=== PATIENT | female | born 1940 | race Caucasian/White ===

== ENCOUNTER 2016-06-01 20:30 | Emergency (ER) | payer MEDICARE, BC ==
[~2016-06-01] VITALS: Ht 162.6 cm; Wt 86.0 kg
[~2016-06-01 20:30] MED LIST: BACITUD TOP; BACTDS PO; CEPH-443 PO; NEOM1PAC TP
[2016-06-01 20:35] VITALS: Ht 162.6 cm; Wt 86.0 kg
--- NOTE | 2016-06-01 22:24 | ERD ---
ER Documentation Chief Complaint Date/Time DATE: 06/01/16 TIME: 22:20 Chief Complaint left finger laceration, bleeding controlled HPI Patient is a 76-year-old female who presents with laceration to her left middle finger that she sustained today while in the kitchen cutting a cabbage. She said since she has had the change the bandage twice and it would not stop bleeding. She denies being on any blood thinning medication. She states her last tetanus shot was just a few months ago. Denies any numbness or tingling, or loss of range of motion. Pain is mild to moderate pulsating throbbing. ROS All systems reviewed and are negative except as per history of present illness. Medications Home Meds Active Scripts Neomycin Jose/Bacitrac Zn/Poly (Triple Antibiotic Ointment) 1 Each Oint.pack, 1 EACH TP BID for 7 Days Prov:JOE TOPETE PA-C 02/11/16 Bacitracin* (Bacitracin Oint (UD)*) 1 Applic Oint, 1 APPLIC TOP BID for 7 Days, PKT APPLY TO Prov:ANDREA AMBROCIO PA-C 02/09/16 Cephalexin* (Keflex*) 500 Mg Capsule, 500 MG PO QID for 7 Days, CAP Prov:ANDREA AMBROCIO PA-C 02/09/16 Sulfamethoxazole-Trimethoprim* (Bactrim* DS) 800-160 Mg Tab, 1 TAB PO BID for 7 Days, TAB Prov:ANDREA AMBROCIO PA-C 02/09/16 Allergies Allergies: Coded Allergies: No Known Allergy (Unverified , 02/09/16) PMhx/Soc History of Surgery: Yes (hysterectomy, appy) Anesthesia Reaction: No Hx Respiratory Disorders: No Hx Cardiac Disorders: No Hx Psychiatric Problems: No Hx Miscellaneous Medical Probl: Yes (HTN, high cholesterol) Hx Alcohol Use: No Hx Substance Use: No Hx Tobacco Use: No Smoking Status: Never smoker FmHx Family History: No diabetes Physical Exam Vitals Vital Signs Date Time Temp Pulse Resp B/P Pulse Ox O2 Delivery O2 Flow Rate FiO2 06/01/16 20:35 98.1 89 17 168/75 99 Physical Exam General: well developed, well nourished, alert, nontoxic, no distress Head: normocephalic, atraumatic Neck: Supple, nontender, no lymphadenopathy, no midline tenderness Respiratory: Clear to auscaultation bilaterally, speaks in full sentences, no use of accesory muscles or labored breathing, no rales, ronchi, or wheezing Cardiovascular: RRR, No murmurs Extremities: moving all extremities normally, normal gait, no edema Skin: Left middle finger on the pad distal there is a partial skin avulsion that is superficial approximately 1 cm in diameter, mild active bleeding, no bony abnormalities, full range of motion in the finger active passively and against resistance, capillary refill less than 2 seconds, sensation to light touch intact, radial pulse 2+ Procedures/MDM Patient presents with small superficial avulsion of skin on the distal left fingertip. She is neurovascularly intact. She has good range of motion and strength against resistance and given how superficial the wound is I have a very low suspicion for a tendon or bony injury. Her wound was appropriately cleaned dressed and bandaged here in the emergency room. Surgicel was applied to the wound to get it to stop bleeding. Recommended 2 day wound check in 7-10 days for removal of sutures. Recommended this patient follow up with her primary care doctor within 48 hours or return to the emergency room for any worsening of symptoms. However this time I do believe there is suitable for outpatient management. I answered all their questions and they agreed with the plan and were discharged home. Departure Diagnosis: Primary Impression: Skin avulsion Condition: Stable CODY ROY PA-C Jun 01, 2016 22:24
== END 2016-06-01 22:51 | disposition home or self-care (01) ==
LOC: FTE 20:30
DX: S61.313A Laceration without foreign body of left middle finger with damage to nail, initial encounter (principal); I10 Essential (primary) hypertension; W26.0XXA Contact with knife, initial encounter; Y92.000 Kitchen of unspecified non-institutional (private) residence as the place of occurrence of the external cause
CPT/HCPCS: 99282

== ENCOUNTER 2016-09-18 13:34 | Emergency (ER) | payer MEDICARE, BC ==
[~2016-09-18] VITALS: Ht 160 cm; Wt 80.0 kg
[2016-09-18 13:35] VITALS: Ht 160 cm; Wt 80.0 kg
--- NOTE | 2016-09-18 14:19 | ERD ---
ER Documentation Chief Complaint Date/Time DATE: 09/18/16 TIME: 14:19 Chief Complaint LT 2ND FINGER LAC HPI This is a 76-year-old female who presents the emergency department today for a left finger laceration that she sustained last night with a tool that she used to cut including her vegetables. Patient states she thought it was turned off but it was not.. Patient stated that the wound was bleeding a lot last night. States that she had a tetanus shot in January 2016. Denies any fevers or chills. ROS All systems reviewed and are negative except as per history of present illness. Medications Home Meds Active Scripts Acetaminophen* (Tylophen*) 500 Mg Capsule, 1 CAP PO Q6H Y for PAIN AND OR ELEVATED TEMP, #30 CAP Prov:JOE TOPETE PA-C 09/18/16 Neomycin Jose/Bacitrac Zn/Poly (Triple Antibiotic Ointment) 1 Each Oint.pack, 1 EACH TP BID for 7 Days Prov:JOE TOPETE PA-C 02/11/16 Bacitracin* (Bacitracin Oint (UD)*) 1 Applic Oint, 1 APPLIC TOP BID for 7 Days, PKT APPLY TO Prov:ANDREA AMBROCIO PA-C 02/09/16 Cephalexin* (Keflex*) 500 Mg Capsule, 500 MG PO QID for 7 Days, CAP Prov:ANDREA AMBROCIO PA-C 02/09/16 Sulfamethoxazole-Trimethoprim* (Bactrim* DS) 800-160 Mg Tab, 1 TAB PO BID for 7 Days, TAB Prov:ANDREA AMBROCIO PA-C 02/09/16 Allergies Allergies: Coded Allergies: No Known Allergy (Unverified , 09/18/16) PMhx/Soc History of Surgery: Yes (hysterectomy, appy) Anesthesia Reaction: No Hx Respiratory Disorders: No Hx Cardiac Disorders: No Hx Psychiatric Problems: No Hx Miscellaneous Medical Probl: Yes (HTN, high cholesterol) Hx Alcohol Use: No Hx Substance Use: No Hx Tobacco Use: No Smoking Status: Never smoker Physical Exam Vitals Vital Signs Date Time Temp Pulse Resp B/P Pulse Ox O2 Delivery O2 Flow Rate FiO2 09/18/16 13:35 97.8 69 16 200/90 99 Physical Exam Const: NAD Head: Atraumatic Eyes: Normal Conjunctiva ENT: Normal External Ears, Nose and Mouth. Neck: Full range of motion..~ No meningismus. Resp: Clear to auscultation bilaterally Cardio: Regular rate and rhythm, no murmurs Abd: Soft, non tender, non distended. Normal bowel sounds Skin: Left hand index finger with 3 small superficial lacerations around DIP. Bleeding well controlled Back: No midline or flank tenderness Ext: Left hand index finger with 3 small superficial lacerations around DIP. Bleeding well controlled. Full active range of motion of finger. Nontender DIP. Pulses 2+. Distal neurovascularly intact. Good cap refill. Neur: Awake and alert Psych: Normal Mood and Affect Results 24 hrs Current Medications Medications (Trade) Dose Ordered Sig/Angie Route PRN Reason Start Time Stop Time Status Last Admin Dose Admin Nicardipine HCl (Cardene) 30 mg ONCE ONCE PO 09/18/16 15:00 09/18/16 15:01 DC 09/18/16 14:44 Procedures/MDM This is a 76-year-old female who presents emergency department today for a laceration that she sustained last night while using a tool to cut and clean her vegetables. On physical exam patient has 3 small superficial lacerations around her DIP and fingernail. Patient sustained this trauma last night and I do not feel the patient requires sutures at this time as the wounds are superficial. Patient has full active range of motion of her finger. She is nontender on her bone. I have low suspicion for fracture or crush injury or tuft injury. I do not feel that she requires imaging at this time. Patient is up-to-date on her tetanus and upon review of patient's medical record she did have a tetanus vaccine here in this emergency department in January 2016. Patient's wounds were dressed here in the emergency department. I did close the wound with Steri-Strips. It was noted that patient had an elevated blood pressure of 200/90. I did recheck patient's blood pressure and it continued to be elevated at 213/99. Patient indicated she takes Diovan and metoprolol and simvastatin at home. Patient was given p.o. Cardene here in the emergency department and blood pressure was down trending and was 196/81 Patient denies any headache, dizziness, blurred vision currently and I do not feel the patient requires workup or imaging at this time. She is instructed to take her usual blood pressure medications at home as prescribed Patient symptoms at this time is consistent with laceration and elevated blood pressure At this time the patient is stable for discharge and outpatient management. Patient should follow up with their PCP in the next 1-2 days. They may return to the emergency department sooner for any persistent or worsening of symptoms. Patient understood and agreed with the plan. Discussed the patient with Dr. Hussein and he is in agreement with the plan. Departure Diagnosis: Primary Impression: Laceration Additional Impression: High blood pressure Hypertension type: essential hypertension Qualified Code: I10 - Essential hypertension Condition: Fair JOE TOPETE PA-C Sep 18, 2016 14:19
[2016-09-18] MEDS ORDERED: NICARDipine HCL 30 MG CAPSULE PO ONE (15:00)
[2016-09-18] MEDS ORDERED: ACET500C5 PO (15:25)
[2016-09-18 15:40] VITALS: BP 134/64; PULSE 70; RESP 16; TEMP 98.3
== END 2016-09-18 15:41 | disposition home or self-care (01) ==
LOC: FTE 13:34
DX: S61.211A Laceration without foreign body of left index finger without damage to nail, initial encounter (principal); I10 Essential (primary) hypertension; W26.8XXA Contact with other sharp object(s), not elsewhere classified, initial encounter; Y92.9 Unspecified place or not applicable
CPT/HCPCS: 99283

== ENCOUNTER 2016-11-20 12:36 | Inpatient (IN) | payer MEDICARE, BC ==
[~2016-11-20] VITALS: Ht 134.6 cm; Wt 80.9 kg
[~2016-11-20 12:36] MED LIST changes: +ACET500C5 PO
[2016-11-20 16:24] LABS: BASOPHIL # 0.1 10^3/ul (0.0-0.1); BASOPHILS % 1.3 % (0.0-2.0); EOSINOPHILS # 0.3 10^3/ul (0.0-0.5); EOSINOPHILS % 4.2 % (0.0-7.0); HEMATOCRIT 40.7 % (37.0-47.0); HEMOGLOBIN 14.1 g/dl (12.0-16.0); LYMPHOCYTES # 2.5 10^3/ul (0.8-2.9); LYMPHOCYTES % 33.2 % (15.0-51.0); MEAN CORPUSCULAR HEMOGLOBIN 30.8 pg (29.0-33.0); MEAN CORPUSCULAR HGB CONC 34.6 g/dl (32.0-37.0); MEAN CORPUSCULAR VOLUME 88.9 fl (82.0-101.0); MEAN PLATELET VOLUME 10.4 fl (7.4-10.4); MONOCYTE # 0.7 10^3/ul (0.3-0.9); MONOCYTES % 8.6 % (0.0-11.0); NEUTROPHILS % 52.3 % (39.0-77.0); PLATELET COUNT 174 10^3/UL (140-415); RED BLOOD COUNT 4.58 10^6/ul (4.20-5.40); RED CELL DISTRIBUTION WIDTH 12.3 % (11.5-14.5); WHITE BLOOD COUNT 7.6 10^3/ul (4.8-10.8)
[2016-11-20 16:45] LABS: INR 1.01; PROTIME 13.3 Sec (12.2-14.2)
[2016-11-20 16:46] LABS: PARTIAL THROMBOPLASTIN TIME 26.2 Sec (25.0-35.0)
[2016-11-20 16:49] LABS: ANION GAP 10 (8-16); BLOOD UREA NITROGEN 18 mg/dl (7-20); CARBON DIOXIDE 32 mmol/L (21-31); CHLORIDE 101 mmol/L (97-110); CREATININE 0.76 mg/dl (0.44-1.00); GLUCOSE 87 mg/dl (70-220); POTASSIUM 3.9 mmol/L (3.5-5.1); SODIUM 139 mmol/L (135-144)
--- NOTE | 2016-11-20 16:51 | RADRPT ---
PROCEDURE: XR Chest. CLINICAL INDICATION: Cerebrovascular accident. TECHNIQUE: Single frontal view. COMPARISON: None. FINDINGS: The lungs are clear. The heart is mildly enlarged. There is calcification in the aorta consistent with atherosclerosis. There is no pleural effusion. There is no pneumothorax. IMPRESSION: 1. Cardiomegaly and atherosclerosis. 2. Otherwise normal chest x-ray. RPTAT: QQ .Zacarias Clintno MD, MD Date Time Electronically viewed and signed by .Zacarias Clinton MD, MD on 11/20/2016 16:51 .R/
[2016-11-20 17:02] LABS: TROPONIN-I < 0.012 ng/ml (0.00-0.12)
--- NOTE | 2016-11-20 18:00 | RADRPT ---
PROCEDURE: CT Brain without contrast. CLINICAL INDICATION: Nodular deficit, possible stroke. TECHNIQUE: A CT of the brain was performed on multidetector high-resolution CT scanner utilizing a xial sections from the skull base through the vertex without contrast. The scan was reviewed in sof t tissue brain and high frequency resolution bone algorithm windows. Images were reviewed on a high -resolution PACS workstation. One or more the following does reduction techniques were utilized: Aut omated exposure control, adjustment of the mA/ or kV according to patient's size, or use of iterativ e reconstruction technique. The exam CTDI = 43.12 mGy and the DLP = 823.86 mGy-cm. COMPARISON: None available. FINDINGS: The ventricles and sulci are mildly to moderately prominent indicative of volume loss. There is no intracranial hemorrhage, mass effect or midline shift. No abnormal intra-axial or extra-axial fluid collections are seen. The mckee/white matter differentiation is preserved. There are mild scattered foci of hypoattenuation in the white matter, which are nonspecific in etiol ogy but likely reflect chronic small vessel ischemic changes. Small lacunar infarcts are noted in t he left rivera radiata and lentiform nucleus, likely chronic. There are mild intracranial vascular calcifications consistent with atherosclerosis. The visualized paranasal sinuses are essentially sunita ar. IMPRESSION: 1. No acute intracranial hemorrhage, transcortical infarction or mass effect. 2. Mild intracranial atherosclerosis and chronic small vessel ischemic changes. 3. Small lacunar infarcts are noted in the left rivera radiata and lentiform nucleus, likely chroni c. Please note MRI is more sensitive for detection of acute ischemia and can be obtained as clinical ly warranted. 4. Mild to moderate generalized cerebral volume loss. RPTAT: HH .Kesha Bhatt MD, MD Date Time Electronically viewed and signed by .Kesha Bhatt MD, MD on 11/20/2016 18:00 .N/
[2016-11-20] MEDS ORDERED: METO-429 PO (18:09)
[2016-11-20] MEDS ORDERED: VALS1TAB82 PO (18:10)
[2016-11-20] MEDS ORDERED: SIMV10TA PO (18:10)
[2016-11-20 18:13] VITALS: TEMP 98.7
[2016-11-20] MEDS ORDERED: ONDANSETRON 4 MG INJ IV PRN (18:30)
[2016-11-20] MEDS ORDERED: ASPIRIN 325 MG TAB PO ONE (18:30)
[2016-11-20] MEDS ORDERED: ACETAMINOPHEN 325 MG TAB PO PRN ×2 (18:30→22:30)
--- NOTE | 2016-11-20 18:53 | ERA ---
ER Documentation Chief Complaint Date/Time DATE: 11/20/16 TIME: 18:51 Chief Complaint WEAKNESS, BILAT LOWER EXT SWELLING/PAIN, SHOULDER PAIN/ HTN HPI Patient is a 76-year-old female with hypertension who presents with weakness. She said that yesterday at 5 PM she felt like she had stepped on a sponge but she did not actually stop on a sponge. She was having right leg pain and weakness. She felt very off balance when walking and could not walk straight. 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 She had a similar event 2 weeks ago. Upon review of old medical records this is the patient's fifth visit to the ER since 2016. Her primary doctor is Dr. Mcdonald. ROS All systems reviewed and are negative except as per history of present illness. Medications Home Meds Reported Medications Valsartan-Hydrochlorothiazide (Valsartan-HCTZ) 320-25 Mg Tablet, 1 TAB PO DAILY , #30 TAB 11/20/16 Simvastatin* (Zocor*) 10 Mg Tablet, 10 MG PO QHS, #30 TAB 11/20/16 Metoprolol Tartrate* (Lopressor*) 50 Mg Tab, 50 MG PO BID, #60 TAB 11/20/16 Discontinued Scripts Acetaminophen* (Tylophen*) 500 Mg Capsule, 1 CAP PO Q6H Y for PAIN AND OR ELEVATED TEMP, #30 CAP Prov:JOE TOPETE PA-C 09/18/16 Neomycin Jose/Bacitrac Zn/Poly (Triple Antibiotic Ointment) 1 Each Oint.pack, 1 EACH TP BID for 7 Days Prov:JOE TOPETE PA-C 02/11/16 Bacitracin* (Bacitracin Oint (UD)*) 1 Applic Oint, 1 APPLIC TOP BID for 7 Days, PKT APPLY TO Prov:ANDREA AMBROCIO PA-C 02/09/16 Cephalexin* (Keflex*) 500 Mg Capsule, 500 MG PO QID for 7 Days, CAP Prov:ANDREA AMBROCIO PA-C 02/09/16 Sulfamethoxazole-Trimethoprim* (Bactrim* DS) 800-160 Mg Tab, 1 TAB PO BID for 7 Days, TAB Prov:ANDREA AMBROCIO PA-C 02/09/16 Allergies Allergies: Coded Allergies: No Known Allergy (Unverified , 11/20/16) PMhx/Soc History of Surgery: Yes (hysterectomy, appy) Anesthesia Reaction: No Hx Respiratory Disorders: No Hx Cardiac Disorders: No Hx Psychiatric Problems: No Hx Miscellaneous Medical Probl: Yes (HTN, high cholesterol) Hx Alcohol Use: No Hx Substance Use: No Hx Tobacco Use: No Smoking Status: Never smoker FmHx Family History: No diabetes Physical Exam Vitals Vital Signs Date Time Temp Pulse Resp B/P Pulse Ox O2 Delivery O2 Flow Rate FiO2 11/20/16 18:13 98.7 54 16 188/78 98 Room Air 11/20/16 16:38 Nasal Cannula 2 11/20/16 16:38 85 16 128/77 99 Nasal Cannula 2.0 11/20/16 12:40 97.7 65 20 194/86 97 Physical Exam Const: No acute distress Head: Atraumatic Eyes: Normal Conjunctiva ENT: Normal External Ears, Nose and Mouth. Neck: Full range of motion..~ No meningismus. Resp: Clear to auscultation bilaterally Cardio: Regular rate and rhythm, no murmurs Abd: Soft, non tender, non distended. Normal bowel sounds Skin: No petechiae or rashes Back: No midline or flank tenderness Ext: No cyanosis, or edema Neur: Awake and alert, cranial nerves II through XII are intact, positive pronator drift on the right Psych: Normal Mood and Affect Result Diagram: 11/20/16 1515 11/20/16 1515 Results 24 hrs Laboratory Tests Test 11/20/16 15:15 11/20/16 16:32 White Blood Count 7.610^3/ul Red Blood Count 4.5810^6/ul Hemoglobin 14.1g/dl Hematocrit 40.7% Mean Corpuscular Volume 88.9fl Mean Corpuscular Hemoglobin 30.8pg Mean Corpuscular Hemoglobin Concent 34.6g/dl Red Cell Distribution Width 12.3% Platelet Count 76761^3/UL Mean Platelet Volume 10.4fl Neutrophils % 52.3% Lymphocytes % 33.2% Monocytes % 8.6% Eosinophils % 4.2% Basophils % 1.3% Nucleated Red Blood Cells % 0.0/100WBC Neutrophils # 4.010^3/ul Lymphocytes # 2.510^3/ul Monocytes # 0.710^3/ul Eosinophils # 0.310^3/ul Basophils # 0.110^3/ul Nucleated Red Blood Cells # 0.010^3/ul Prothrombin Time 13.3Sec Prothrombin Time Ratio 1.0 INR International Normalized Ratio 1.01 Activated Partial Thromboplast Time 26.2Sec Sodium Level 139mmol/L Potassium Level 3.9mmol/L Chloride Level 101mmol/L Carbon Dioxide Level 32mmol/L Anion Gap 10 Blood Urea Nitrogen 18mg/dl Creatinine 0.76mg/dl Glucose Level 87mg/dl Hemoglobin A1c 6.0% Calcium Level 10.0mg/dl Troponin I < 0.012ng/ml Bedside Glucose 81mg/dL Current Medications Medications (Trade) Dose Ordered Sig/Angie Route PRN Reason Start Time Stop Time Status Last Admin Dose Admin Aspirin (Aspirin) 325 mg ONCE ONCE PO 11/20/16 18:30 11/20/16 18:31 DC Ondansetron HCl (Zofran Inj) 4 mg ER BRIDGE PRN IV NAUSEA AND/OR VOMITING 11/20/16 18:30 11/21/16 18:29 Acetaminophen (Tylenol Tab) 650 mg ER BRIDGE PRN PO MILD PAIN/FEVER 11/20/16 18:30 11/21/16 18:29 Procedures/MDM EKG read by me: Rate/Rhythm: Sinus bradycardia Intervals: Normal Impression: Sinus bradycardia without ischemia Chest X-ray 1V Interpreted by me: Soft Tissue: No acute abnormalities Bones: No acute abnormalities Mediastinum/Cardiac Silhouette/Lungs: No acute abnormalities CT brain shows no intracranial hemorrhage or mass per radiology. Patient is a 76-year-old female with hypertension who presents with what appears to be an acute stroke. She is outside the window for TPA. She was given aspirin after she passed a swallow evaluation and her CT brain showed no bleed. I doubt intracranial hemorrhage or mass. I spoke with Dr. Garcia who is covering for Dr. Mcdonald. The patient will be admitted to the care of Dr. Mcdonald to a telemetry bed. She will likely need further workup for stroke. Departure Diagnosis: Primary Impression: Stroke Qualified Code: I63.9 - Cerebrovascular accident (CVA), unspecified mechanism Additional Impression: Acute weakness Condition: ELISSA Ruiz MD Nov 20, 2016 18:53
[2016-11-20 20:40] VITALS: BP 179/75; RESP 18
[2016-11-20 20:41] VITALS: PULSE 84
[2016-11-20 21:13] VITALS: Ht 134.6 cm; Wt 80.9 kg
[2016-11-20] MEDS ORDERED: ATORVASTATIN 10 MG TAB PO SCH (23:20)
[2016-11-20] MEDS: METOPROLOL 50 MG TAB PO SCH (23:21)
[2016-11-21] VITALS (8 sets, daily range): BP systolic 120–157; BP diastolic 58–70; PULSE 45–69; RESP 18–19
--- NOTE | 2016-11-21 08:28 | PN ---
Date/Time of Note Date/Time of Note DATE: 11/21/16 TIME: 08:23 Assessment/Plan VTE Prophylaxis VTE Prophylaxis Intervention: other (asa) Lines/Catheters IV Catheter Type (from Nrsg): Saline Lock Urinary Cath still in place: No Subjective 24 Hr Interval Summary Free Text/Dictation 76 yr old woman w several day hx paresthesia rt foot, somewhat unsteady gait to the right and some numb feeling in rt upper arm and rt side, no facial numbness , no headache no speech issues.hx hbp on meds.in er last pm, ct no bleed but old lacunes. mri, carotid us ordered, echo just done, no results. bp better this am, heart rate slows to 40's, no arythmia alert, speech clear cranial nerves intact, str about same, moves all four, fine motor movements nl ue, gait, leonel w turns, somewhat unsteady plan for pt, cardiac eval, await results of weorkup, cont asa for now Neurologic: other (gait is unsteady) Exam/Review of Systems Vital Signs Vitals Vital Signs Date Time Temp Pulse Resp B/P Pulse Ox O2 Delivery O2 Flow Rate FiO2 11/21/16 08:10 97.9 67 18 144/70 95 11/20/16 20:12 Room Air 11/20/16 16:38 2 Intake and Output 11/20/16 11/20/16 11/21/16 15:00 23:00 07:00 Intake Total 240 ml Balance 240 ml Results Result Diagram: 11/20/16 1515 11/20/16 1515 Results 24 hrs Laboratory Tests Test 11/20/16 15:15 11/20/16 16:32 White Blood Count 7.6 Red Blood Count 4.58 Hemoglobin 14.1 Hematocrit 40.7 Mean Corpuscular Volume 88.9 Mean Corpuscular Hemoglobin 30.8 Mean Corpuscular Hemoglobin Concent 34.6 Red Cell Distribution Width 12.3 Platelet Count 174 Mean Platelet Volume 10.4 Neutrophils % 52.3 Lymphocytes % 33.2 Monocytes % 8.6 Eosinophils % 4.2 Basophils % 1.3 Nucleated Red Blood Cells % 0.0 Neutrophils # 4.0 Lymphocytes # 2.5 Monocytes # 0.7 Eosinophils # 0.3 Basophils # 0.1 Nucleated Red Blood Cells # 0.0 Prothrombin Time 13.3 Prothrombin Time Ratio 1.0 INR International Normalized Ratio 1.01 Activated Partial Thromboplast Time 26.2 Sodium Level 139 Potassium Level 3.9 Chloride Level 101 Carbon Dioxide Level 32 H Anion Gap 10 Blood Urea Nitrogen 18 Creatinine 0.76 Glucose Level 87 Hemoglobin A1c 6.0 H Calcium Level 10.0 Troponin I < 0.012 Bedside Glucose 81 Medications Medications Current Medications Aspirin (Aspirin) 81 mg DAILY PO ; Start 11/21/16 at 09:00 Clonidine (Catapres) 0.1 mg Q6H PRN PO ELEVATED SYSTOLIC BP; Start 11/20/16 at 22:36 Acetaminophen (Tylenol Tab) 650 mg Q6H PRN PO PAIN AND OR ELEVATED TEMP; Start 11/20/16 at 22:30 Metoprolol Tartrate (Lopressor) 50 mg BID PO Last administered on 11/20/16 23: 21; Admin Dose 50 MG; Start 11/20/16 at 23:00 Atorvastatin Calcium (Lipitor) 10 mg DAILY@21 PO Last administered on 23:23; Admin Dose 10 MG; Start 11/20/16 at 23:20 Valsartan (Diovan) 320 mg DAILY PO ; Start 11/21/16 at 09:00 Hydrochlorothiazide (Hydrochlorothiazide) 25 mg DAILY PO ; Start 11/21/16 at 09: 00 YEYO MENDEZ MD Nov 21, 2016 08:28
[2016-11-21 08:36] LABS: BASOPHIL # 0.1 10^3/ul (0.0-0.1); BASOPHILS % 1.3 % (0.0-2.0); EOSINOPHILS # 0.3 10^3/ul (0.0-0.5); EOSINOPHILS % 4.6 % (0.0-7.0); HEMATOCRIT 41.4 % (37.0-47.0); HEMOGLOBIN 14.1 g/dl (12.0-16.0); LYMPHOCYTES # 2.5 10^3/ul (0.8-2.9); LYMPHOCYTES % 32.9 % (15.0-51.0); MEAN CORPUSCULAR HEMOGLOBIN 30.3 pg (29.0-33.0); MEAN CORPUSCULAR HGB CONC 34.1 g/dl (32.0-37.0); MEAN PLATELET VOLUME 11.2 fl (7.4-10.4); MONOCYTE # 0.6 10^3/ul (0.3-0.9); MONOCYTES % 8.4 % (0.0-11.0); NEUTROPHIL # 3.9 10^3/ul (1.6-7.5); NEUTROPHILS % 52.5 % (39.0-77.0); PLATELET COUNT 185 10^3/UL (140-415); RED BLOOD COUNT 4.65 10^6/ul (4.20-5.40); RED CELL DISTRIBUTION WIDTH 12.7 % (11.5-14.5); WHITE BLOOD COUNT 7.5 10^3/ul (4.8-10.8)
[2016-11-21] MEDS: METOPROLOL 50 MG TAB PO SCH (08:51)
[2016-11-21 08:56] LABS: ALBUMIN 4.1 g/dl (3.3-4.9); ALBUMIN/GLOBULIN RATIO 1.28; BILIRUBIN,INDIRECT 0.7 mg/dl (0-1.1); BILIRUBIN,TOTAL 0.7 mg/dl (0.2-1.3); CALCIUM 9.9 mg/dl (8.4-10.2); CREATININE 0.76 mg/dl (0.44-1.00); POTASSIUM 4.2 mmol/L (3.5-5.1); TOTAL PROTEIN 7.3 g/dl (6.1-8.1)
[2016-11-21] MEDS ORDERED: NON-FORMULARY/PATIENT OWN MED (Valsartan-Hydrochlorothiazide (Valsartan-HCTZ) 1 TAB) PO SCH (09:00)
[2016-11-21] MEDS ORDERED: ASPIRIN 81 MG TAB PO SCH (09:00)
[2016-11-21] MEDS ORDERED: VALSARTAN 160 MG TAB PO SCH (09:00)
[2016-11-21] MEDS ORDERED: HYDROCHLOROTHIAZIDE 25 MG TAB PO SCH (09:00)
[2016-11-21 09:24] LABS: THYROID STIMULATING HORMONE 1.93 MIU/L (0.465-4.680)
--- NOTE | 2016-11-21 11:30 | RADRPT ---
PROCEDURE: US Carotids. CLINICAL INDICATION: Syncope TECHNIQUE: Multiple sonographic of the carotid bifurcation region and vertebral arteries were obta ined utilizing mckee scale, duplex and color-flow imaging. The images were reviewed on a PACS worksta tion. COMPARISON: None FINDINGS: Evaluation of the right carotid bifurcation region reveals no significant calcific atherosclerotic d isease. Evaluation of the left carotid bifurcation region reveals no significant calcific atherosclerotic di sease. There is antegrade flow within the vertebral arteries bilaterally. RIGHT CAROTID MEASUREMENTS: Common Carotid Orqlgd29 (cm/sec) Internal Carotid Artery - [id number] (cm/sec) Internal Carotid Artery - mid56 (cm/sec) Internal Carotid Artery - [id number] (cm/sec) Internal Carotid/Common Carotid0.8 LEFT CAROTID MEASUREMENTS: Common Carotid Artery 119 (cm/sec) Internal Carotid Artery - proximal 67 (cm/sec) Internal Carotid Artery - mid 61 (cm/sec) Internal Carotid Artery - distal 60 (cm/sec) Internal Carotid/Common Carotid 0.6 IMPRESSION: 1. No evidence of a significant stenosis of the right internal carotid artery. 2. No evidence of a significant stenosis of the left internal carotid artery. 3. Normal antegrade flow in the vertebral arteries bilaterally. Measurement of carotid stenosis is based on peak systolic and diastolic velocity parameters that cor relate to the residual internal carotid diameter with [place] Symptomatic Carotid Endarterect anneliese Trial (NASCET) based stenosis levels. Normal ( < 50% )- ICA peak systolic velocity < 125 cm/sec, ICA / CCA ratio < 2.0 Moderate stenosis ( 50 - 69% )- ICA peak systolic velocity 125 - 230 cm/sec, ICA / CCA ratio 2.0 - 4.0 Severe stenosis ( >70% )- ICA peak systolic velocity > 230 cm/sec, ICA / CCA ratio > 4.0 RPTAT:AAJJ Physician Renny Date Time Electronically viewed and signed by Physician Renny on 11/21/2016 11:29 /
--- NOTE | 2016-11-21 13:56 | RADRPT ---
Echocardiogram Report Patient Name: JUSTIN MORELOS Gender: Female Date: 1940 Study Date: 21-Nov-2016 Hotel Lobby Concierge: Jayshree Cain [facility] Location: 5539 Ref. Physician: YEYO MENDEZ Quality: Good Procedures: Transthoracic echocardiogram with complete 2D, M-Mode, and doppler examination. Indications: r/o stroke. 2D/M Mode Doppler Measurement Value Normal Ranges Measurement Value Normal Ranges LVIDd 2D 3.9 3.5 - 5.6 cm AV Peak Chucky 1.6 m/sec LVIDs 2D 2.5 2.1 - 4.1 cm AV Peak PG 10.9 mmHg LVPWd 2D 1.2 0.6 - 1.1 cm LVOT Peak Chucky 1.3 m/sec IVSd 2D 1.2 0.6 - 1.1 cm LVOT Peak PG 6.3 mmHg AoR Diam 2D 2.8 2.0 - 3.7 cm MV E Peak Chucky 0.6 m/sec EDV 2D 66.3 cm3 MV A Peak Chucky 0.7 m/sec ESV 2D 15.2 cm3 MV E/A 0.8 LA Dimen 2D 3.5 2.3 - 4.0 cm MV Decel Time 220 msec MV Decel Dixie 3 MV E/A 0.8 TR Peak Chucky 3.3 m/sec TR Peak PG 43.0 mmHg RVSP 46.0 mmHg Findings Left Ventricle: Normal left ventricular systolic function. Normal left ventricular cavity size. Mild concentric left ventricular hypertrophy. Ejection fraction is visually estimated at 65 %. Tissue Doppler/Mitral Doppler indices are consistent with impaired relaxation (Stage I diastolic dysfunction). Right Ventricle: Normal right ventricular size. Normal right ventricular systolic function. Left Atrium: The left atrium is normal in size. Right Atrium: The right atrium is normal in size. Mitral Valve: Normal appearance and function of the mitral valve with trace physiologic regurgitation. Aortic Valve: No significant aortic stenosis or insufficiency. Aortic cusps appear mildly calcified. Tricuspid Valve: Normal appearance of the tricuspid valve. Estimated peak PA systolic pressure 46 mmHg. There is mild tricuspid regurgitation. Pulmonic Valve: Normal pulmonic valve appearance. Pericardium: Normal pericardium with no significant pericardial effusion. Aorta: Normal aortic root. IVC: Normal size and normal respiratory collapse consistent with normal right atrial pressure. Conclusions 1.Normal left ventricular systolic function. Normal left ventricular cavity size. Mild concentric left ventricular hypertrophy. Ejection fraction is visually estimated at 65 %. Tissue Doppler/Mitral Doppler indices are consistent with impaired relaxation (Stage I diastolic dysfunction). 2.Normal right ventricular size. Normal right ventricular systolic function. 3.The left atrium is normal in size. 4.The right atrium is normal in size. 5.Normal appearance and function of the mitral valve with trace physiologic regurgitation. 6.No significant aortic stenosis or insufficiency. Aortic cusps appear mildly calcified. 7.Normal appearance of the tricuspid valve. Estimated peak PA systolic pressure 46 mmHg. There is mild tricuspid regurgitation. 8.Normal size and normal respiratory collapse consistent with normal right atrial pressure. Electronically Signed By: Toni Britt 21-Nov-2016 13:56:03 -0700 Patient Name: JUSTIN MORELOS Study Date: 21-Nov-2016 [id number]
[2016-11-21] MEDS ORDERED: ASPI81TA3 PO (14:24)
--- NOTE | 2016-11-21 14:27 | PDOCDIS ---
Discharge Instructions CONDITION Patient Condition: Good HOME CARE INSTRUCTIONS: Diet Instructions: Low Fat /Cholesterol ACTIVITY: Activity Restrictions: Slowly Increase Activity Bathing Restrictions: Shower FOLLOW UP/APPOINTMENTS Follow-up Plan call office on to schedule follow up and a mri YEYO MENDEZ MD Nov 21, 2016 14:27
--- NOTE | 2016-11-21 18:02 | HP ---
DATE OF ADMISSION: 11/20/2016 CHIEF COMPLAINT: High blood pressure. HISTORY OF PRESENT ILLNESS: This is a 76-year-old [place] woman with a history of arteriosclerosis, hypertension, and arthritis. The patient has had a [id number]-popn-[id number]-month history of difficulty with her gait, occasionally seeming to go off to the right, occasionally difficulty with turning. There has been some intermittent sensation of numbness or paresthesias on the right side of her body, but not on the right side of her face. She saw Dr. Davis in his office on 10/23/2016. At that point, he was a little bit unclear about the cause of her symptoms. He thought there was a fair amount of sciatica. He did not find any evidence of focal neurologic sign, evidence of vertigo or numbness or extrapyramidal signs. The patient was suggested to get some physical therapy, to follow up with her regular doctor. The patient felt about the same over the last month with episodes where her gait was not really good. Other times, she felt fine. She has intermittent complaint of some weakness on the right side and then again pain on the left side in her legs. At any rate, her blood pressure was high the day of admission when she was at the external relations director's, who suggested she go to the hospital, and she was admitted. Overall her neurologic symptoms really have been unchanged and are not particularly worse. Specifically, there is no headache. There is no sense of dizziness. There was no visual loss, no focal loss of motor function. Her speech has been clear. A CT scan done in the emergency room was remarkable for bleeding. 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 LABORATORY TESTS: Unremarkable, including a sedimentation rate. PAST MEDICAL HISTORY: Medical problems of hypercholesterolemia and hypertension. PAST SURGICAL HISTORY: Hysterectomy. SOCIAL HABITS: No use of cigarettes or alcohol. CURRENT MEDICATIONS: 1. Simvastatin 10 mg daily. 2. Metoprolol 50 mg daily. 3. Valsartan/hydrochlorothiazide 320/25 mg. I believe she takes half of this tablet daily. The patient was placed on aspirin on admission to the emergency room. ALLERGIES: SHE HAS NO KNOWN ALLERGIES. REVIEW OF SYSTEMS: CARDIORESPIRATORY: Otherwise not complaining of shortness of breath or cough or exertional chest pain. No prior history of coronary disease. GASTROINTESTINAL/GENITOURINARY: Relatively asymptomatic. SOCIAL HISTORY: Patient is . One daughter is with the patient. PHYSICAL EXAMINATION: VITAL SIGNS: Blood pressure currently 140/60, has been a little bit higher. Overnight, she was given 1 dose of clonidine for a blood pressure of about 180. Her pulse has been stable sinus rhythm, variable, but typically 40-50. HEENT: No signs of trauma. Pupils are round and reactive. Extraocular muscle movements are intact. Visual martinez are normal to confrontation. Mouth is unremarkable. NEUROLOGIC: Cranial nerves are intact. NECK: Supple. No carotid bruits appreciated. CHEST: Clear. HEART: Tones regular. ABDOMEN: Obese without mass. EXTREMITIES: No clubbing, cyanosis, edema. Peripheral pulse are present. She has bilateral good strength in her upper and lower extremities. Her gait is stable independently, although she has some difficulty with turning quickly, and there was some tendency to lean slightly to the right. IMPRESSION: 1. Hypertension, improved. 2. Hyperlipidemia. 3. Long history of some nonspecific paresthesias and gait difficulties. PLAN: Outpatient workup has been started. A carotid ultrasound and echocardiogram will be ordered. The patient is currently stable. The situation is discussed with the family. A phone call to her usual cruise guide. The cruise guide stated that she sounded about the same as usual and had no further suggestions to offer. Dictated By: Ellis Hill MD /augie/saloni /Document#: [id number]
--- NOTE | 2016-11-22 13:28 | DS ---
DATE OF ADMISSION: 11/20/2016 DATE OF DISCHARGE: 11/21/2016 CHIEF COMPLAINT: Hypertension and sense of unsteadiness. FINAL DIAGNOSES: 1. Hypertension. 2. Chronic mild gait ataxia. Etiology to be determined. HOSPITAL COURSE: The patient is a 77-year-old, pleasant lady who has had about a month history of sciatic symptoms on the left and some difficulty with her gait on the right and some intermittent paresthesias on the right side of her body. She has seen a neurologist and workup so far has been negative. She presented to the emergency room on advice of her rubber turner who found her blood pressure was high. Blood pressure was high in the Emergency Room, has been controlled. She was nonfocal in the ER, CT of the brain in the ER was normal. Subsequently a carotid ultrasound reveals no evidence of significant obstruction. Echocardiogram was completely normal. Cardiac monitoring reveals sinus rhythm in the 40s and 50s. She is on a beta tere. Her neurological status is unchanged. She is able to ambulate with the use of a cane rather steadily and wishes to go home with further outpatient followup. An MRI was not able to be accomplished and will be ordered next week. She will call the office and also make an appointment. She is discharged home on simvastatin, metoprolol, valsartan, hydrochlorothiazide and baby aspirin 81 mg daily. She and her verbalized understanding of the situation and will return to the Emergency Room if further neurological episodes occur. At the time of discharge, her condition is stable and fair. Dictated By: Ellis Hill MD /augie/atiya /Document#: [id number]
== END 2016-11-21 15:45 | disposition home or self-care (01) | DRG 305 ==
LOC: E/R 12:36 → MS4 18:23
PROVIDERS: ADMIT Internal Medicine; ATTEND Internal Medicine
DX: I10 Essential (primary) hypertension (principal); E78.5 Hyperlipidemia, unspecified; R20.9 Unspecified disturbances of skin sensation; R27.0 Ataxia, unspecified; Z90.710 Acquired absence of both cervix and uterus
CPT/HCPCS: 70450; 71010; 80048; 80053; 82962; 83036; 84443; 84484; 85025; 85610; 85651; 85730; 92610; 93005; 93306; 93880